=== PATIENT | male | born 1995 | race African-American/Black ===

== ENCOUNTER 2025-06-29 14:42 | Outpatient (OUT) | payer OTHER, SELFPAY ==
--- OUTSIDE RECORDS SUMMARY | 2025-06-29 10:00 | XMS_ITS ---
Author Organization [facility] in [place] Address [address] [place] [address] Care Team Providers Care Law Office Receptionist Name Role Phone Jorge L Lemos Primary Care Provider Allergies No Known Allergies REASON FOR VISIT New Patient- Establish Social History Tobacco Use: Social History Observation Description Date Details (start date - stop date) Never Smoker NA - NA Tobacco Control (Standard) Question Answer Notes Tobacco use: Nonsmoker AUDIT-C (Standard) Question Answer Notes Did you have a drink contain ing alcohol in the past year? Yes How often did you have a dri nk containing alcohol in the past year? Never (0 point) How many drinks did you have on a typical day when you were drinking in the past year? 1 or 2 drinks (0 point) How often did you have six o r more drinks on one occasion in the past year? 2 to 4 times a month (2 points) Points 2 Interpretation Negative Problems Problem Type SNOMED Code ICD Code Onset Dates Problem Status W/U Status Risk Notes Problem Well adult (173196939) Well adult (Z00.00) Active confirmed Vital Signs Weight 190.2 lbs 06/29/2025 Height 6ft in 06/29/2025 Blood pressure systolic 132 mm Hg 06/29/20 25 Blood pressure diastolic 82 mm Hg 025 BMI 25.79 kg/m2 06/29/2025 Encounters Encounter Location Date Provider Diagnosis [facility] [address] [place] [address] 06/29/2025 Jorge L Lemos Well adult Z00.0 0 Assessments Encounter Date Diagnosis (ICD Code) Assessment Notes Treatment Notes Treatment Clinical Notes Section Notes 06/29/2025 Well adult (ICD-10 - Z00.00) Plan Of Treatment Pending Test Test Name Order Date HEMOGLOBIN A1C (GLYCO) 06/29/2025 LIPID PANEL (CHOL/TRIG/HDL/LDL) 06/29/20 25 HERPES SIMPLEX 1,2 IGM AB (IFA) 06/29/20 25 CHLAMYDIA AND GC (URINE, VAG, OR SWAB) - IH 06/29/2025 HEPATITIS PANEL, ACUTE 06/29/2025 HIV 1 AND 2 WITH REFLEX 06/29/2025 RPR QUANT 06/29/2025 CMP (COMP MET ROD) w/eGFR CKD-EPI 2024 CBC WITH DIFF 06/29/2025 Progress Notes * Xavi MARTINMadelinOB: (30 yo M)Acc No.[id number]:06/29/2025 UNLOCKED PROGRESS NOTE New Patient Patient: Renetta PATEL Provider: Gurinder Lemos ([facility])MD :1995 A ge:30 Y S ex:Male Date:06/29/2025 Address:[address], [place], [id number] Check In:01:55 PM ESTCheck O ut:02:31 PM EST Subjective: * Chief Complaints: * 1 . New Patient- Establish. * HPI: G eneral: Doignwell -0 no issues - disussed nee for labs discussed htn - borderline - watch caffien. D epression Screening: PHQ-2 (2015 Edition) L ittle interest or pleasure in doing things??Not at all F eeling down, depressed, or hopeless? N ot at all T otal Score 0 * ROS: E ENT: hearing changes d enies. v isual changes d enies.?non-healing mouth sores d enies. s wollen glands or neck lumps d enies. h oarseness d enies. s ore throat d enies. d ifficulty swallowing d enies. n ose bleeds d enies. n chris congestion d enies. e ar ache d enies. e ar discharge?denies. r inging in ears d enies. l ight sensitivity d enies. e ye pain d enies. b lurring d enies. e ye irritation d enies. d ouble vision d enies.?vision loss d enies. G eneral/Constitutional: Sweats: D enies. F atigue d enies. S leep problems d enies. A norexia d enies. M alaise d enies. W eight loss d enies.?Fatigue or Weakness d enies. F ever or Chills d enies. C ardiovascular: Shortness of Breath w/lying flat d enies. L ightheadedness/dizziness d enies. C hest tightness/ heavy pressure d enies. S welling of legs, ankles, or feet d enies. W aking up with shortness of breath d enies. C hest pain denies. P alpitations d enies. W eight gain d enies. R espiratory: Chronic or frequent cough d enies. C oughing up blood?denies. D ifficulty breathing d enies. P roductive cough d enies. S noring?denies. S hortness of breath that awakens from sleep (PND) d enies. C hest pain d enies. S putum production d enies. W heezing d enies. M usculoskeletal: Joint pain d enies. J oint Fluid d enies. B ack pain d enies. K nee pain d enies. N myesha pain d enies. J oint Stiffness d enies. M uscle cramps d enies. W eakness of muscles d enies. A rthritis d enies. M uscle aches d enies. P ain in shoulder(s) d enies. S wollen joints d enies. * Medical History: M edical History Verified. * Surgical History: D enies Past Surgical History. * Hospitalization/Major Diagno stic Procedure: D enies Past Hospitalization. * Family History: F ather: , diagnosed with Unspecified heart disease. M other: alive. B rother(s): . S ister(s): alive. * Social History: T obacco Use: T obacco Control (Standard) T obacco use: N onsmoker D rug/Alcohol: A OLGA-C (Standard) D id you have a drink containing alcohol in the past year? Y es H ow often did you have a drink containing alcohol in the past year? N ever (0 point) H ow many drinks did you have on a typical day when you were drinking in the past year? 1 or 2 drinks (0 point) H ow often did you have six or more drinks on one occasion in the past year? 2 to 4 times a month (2 points) P oints 2 I nterpretation N egative * Medications: N one * Allergies: N .K.D.A. Objective: * Vitals: W t:190.2lbs, Ht: 6ft, BP:132/82mm Hg, BMI:25.79Index, Ht-cm: 182.88 cm, Wt-k.27 kg. * Examination: P hysical Exam: GENERAL: w ell developed, well nourished, in no acute distress. HEAD: n ormocephalic/atraumatic. EYES: p upils equal, round and reactive to light, conjunctivae and sclerae normal. EARS: n o deformity or lesion of external ear, canals and TM appear normal bilaterally, TM's intact, not inflamed with normal light reflex, hearing grossly normal to conversational speech. NOSE: n o deformity, discharge, inflammation, or lesions.? MOUTH: m ucous membranes moist, normal oropharynx and posterior pharynx without lesions or exudates, tongue normal, dentition normal. NECK: n myesha supple, no masses or palpable cervical nodes, trachea midline, thyroid without nodules, masses, tenderness, or enlargement. CHEST: n o chest wall deformity, no chest wall tenderness.? LUNGS: n ormal respiratory effort and clear to auscultation, no wheezes, rales, or rhonchi, good air exchange. CARDIO: r egular rate and rhythm, normal S1 and S2, nor murmur, rub, or gallop. PULSES: n ormal capillary refill. ABDOMEN: s oft, non-distended, non-tender, no masses. MUSCULOSKELETAL: n o deformity or scoliosis noted, normal range of motion, joints normal, no erythema, edema, effusion, or ecchymosis. EXTREMITY: n o clubbing, cyanosis, edema, or deformity with normal ROM in both upper and lower bilateral extremities. NEUROLOGIC: g rossly normal. SKIN: n o rashes, ulcerations, or suspicious lesions. LYMPH NODES: n o cervical adenopathy, nodes normal. MENTAL STATUS: a lert and oriented x3, normal mood and affect. Assessment: * Assessment: 1. W ell adult - Z00.00 (Primary) Plan: * Treatment: * Procedure Codes: 8 7491 CHYLMD TRACH, DNA, AMP PROBE * * Electronic signature of Jorge L Lemos MD, [phone] on 06/29/2025 at 02:49 PM EDT Sign off status: Pending Visit Status: Barbara POST (Check Out) * Provider: Gurinder Lemos ([facility])MD Date: 0 06/29/2025 Generated for Printi ng/Faxing/eTransmitting on: 0 06/29/2025 02:49 PM EDT History and Physical Notes * HPI (History of Present Illness) Category Sub-Category Detail Notes Category Not es General Doignwell -0 no issues - disussed nee for labs discussed htn - borderline - watch caffien Depression Screening PHQ-2 (2015 Edition) Little interest or pleasure in doing things?: Not at all Feeling down, depressed, or hopeless?: N ot at all Total Score: 0 Examination Category Sub-Category Detail Notes Category Not es Physical Exam GENERAL: well developed, well nourished, in no acute distress HEAD: normocephalic/atraum atic EYES: pupils equal, round and reactive to light, conjunctivae and sclerae normal EARS: no deformity or lesi on of external ear, canals and TM appear normal bilaterally, TM's intact, not inflamed with normal light reflex, hearing grossly normal to conversational speech NOSE: no deformity, discha rge, inflammation, or lesions MOUTH: mucous membranes eric st, normal oropharynx and posterior pharynx without lesions or exudates, tongue normal, dentition normal NECK: neck supple, no mass es or palpable cervical nodes, trachea midline, thyroid without nodules, masses, tenderness, or enlargement CHEST: no chest wall deform ity, no chest wall tenderness LUNGS: normal respiratory e ffort and clear to auscultation, no wheezes, rales, or rhonchi, good air exchange CARDIO: regular rate and rhy thm, normal S1 and S2, nor murmur, rub, or gallop PULSES: normal capillary ref ill ABDOMEN: soft, non-distended, non-tender, no masses RECTAL: MUSCULOSKELETAL: no deformity or scol iosis noted, normal range of motion, joints normal, no erythema, edema, effusion, or ecchymosis EXTREMITY: no clubbing, cyanosi s, edema, or deformity with normal ROM in both upper and lower bilateral extremities NEUROLOGIC: grossly normal SKIN: no rashes, ulceratio ns, or suspicious lesions LYMPH NODES: no cervical adenopat hy, nodes normal MENTAL STATUS: alert and oriented x 3, normal mood and affect
--- OUTSIDE RECORDS SUMMARY | 2025-06-29 14:49 | XMS_ITS | Clinical Summary ---
Author Organization [facility] Address [address] [place] [address] Care Team Providers Care Child Development Consultant Name Role Phone Noreen Linda MD Primary Care Provider Social History Tobacco Use Types Packs/Day Years Used Date Smoking Tobacco: Never Assessed Sex and Gender Information Value Date Recorded Sex Assigned at Not on file Legal Sex Male 8:28 PM EDT Gender Identity Male 01/29/2023 8:28 PM EDT Sexual Orientation Not on file Last Filed Vital Signs Vital Sign Reading Time Taken Comments Blood Pressure 130/88 03/13/2023 12:00 PM EDT Pulse - - Temperature - - Respiratory Rate - - Oxygen Saturation - - Inhaled Oxygen Concentration - - Weight 82.1 kg (181 lb) 03/13/2023 12:00 PM EDT Height 182.9 cm (6') 03/13/2023 12:00 PM EDT Body Mass Index 24.55 03/13/2023 12:00 PM EDT Plan of Treatment Health Maintenance Due Date Last Done Comments Influenza Vaccine (#1) 2025 Insurance [employer] Care Teams Child Development Consultant Relationship Specialty Start Date End Date Noreen Linda MD [address] [place] [address] PCP - General Family Medicine 03/25/23
--- OUTSIDE RECORDS SUMMARY | 2025-06-29 14:49 | XMS_ITS | Patient Health Record ---
Author Organization [facility] in [place] Address [address] [place] [address] Care Team Providers Care Hand Bander Name Role Phone CaneloJorge L Primary Care Provider [phone] Allergies No Known Allergies Reason For Referral No Information Social History Tobacco Use: Social History Observation [...] W/U Status Risk Notes Problem Well adult (572997746) Well adult (Z00.00) Active confirmed Vital Signs Blood pressure diastolic 82 mm Hg 06/29/2025 Height 6ft in 06/29/2025 Blood pressure systolic 132 mm Hg 06/29/2025 Weight 190.2 lbs 06/29/2025 BMI 25.79 kg/m2 06/29/2025 Encounters Encounter Location Date Provider Diagnosis [facility] ([place], [place]) [address] [place] [address] 06/29/2025 Jorge L Lemos Well adult Z00.0 0 Assessments Encounter Date Diagnosis (ICD Code) Assessment Notes Treatment Notes Treatment Clinical Notes Section Notes 06/29/2025 Well adult (ICD-10 - Z00.00) Plan Of Treatment Pending Test Test Name Order Date HEMOGLOBIN A1C (GLYCO) 06/29/2025 LIPID PANEL (CHOL/TRIG/HDL/LDL) 06/29/20 HERPES SIMPLEX 1,2 IGM AB (IFA) 06/29/20 CHLAMYDIA AND GC (URINE, VAG, OR SWAB) - IH 06/29/2025 HEPATITIS PANEL, ACUTE 06/29/2025 HIV 1 AND 2 WITH REFLEX 06/29/2025 RPR QUANT 06/29/2025 CMP (COMP MET ROD) w/eGFR CKD-EPI 2024 CBC WITH DIFF 06/29/2025 Insurance Providers Payer Name Payer Address Payer Phone Subscriber Number Group Number Insured Name Patient Relationship to Insured Coverage Start Date Coverage End Date [facility] [address] [place], [place] [id number] [phone] [id number] Renetta Whitman Self - patient is the insured
[2025-06-29 15:42] LABS: Hematocrit 45.2 % (42.0-54.0); Hemoglobin 15.7 g/dL (14.0-18.0); Mean Corpuscular HGB Conc 34.7 g/dL (29.9-35.2); Mean Corpuscular Hemoglobin 30.8 pg (25.9-34.0); Mean Corpuscular Volume 88.8 fL (80.0-94.0); Platelet Count 226 10^3/uL (150-450); Red Blood Count 5.09 10^6/uL (4.70-6.10); White Blood Count 2.7 10^3/uL (4.0-11.0)
[2025-06-29 16:00] LABS: Band Neutrophils Absolute 0.0 10^3/uL (0.0-0.3); Basophils Abs Manual 0.00 10^3/uL (0.00-0.10); Basophils Percent Manual 0.0 % (0.2-2.0); Eosinophils Absolute Manual 0.00 10^3/uL (0.00-0.70); Eosinophils Percent Manual 0.0 % (0.9-7.0); Lymphocytes Absolute Manual 1.24 10^3/uL (1.20-3.80); Lymphocytes Percent Manual 46.0 % (20.5-60.0); Monocytes Absolute Manual 0.45 10^3/uL (0.30-0.80); Monocytes Percent Manual 17.0 % (1.7-12.0); Segmented Neut Absolute Manual 0.97 10^3/uL (1.4-6.5); Segmented Neutrophils % Manual 36.0 (43.0-75.0)
[2025-06-29 16:05] LABS: Alanine Aminotransferase 74 U/L (16-63); Albumin Globulin Ratio 1.2; Albumin Level 4.3 g/dL (3.4-5.0); Alkaline Phosphatase 77 U/L (46-116); Anion Gap 13.4; Aspartate Amino Transferase 38 U/L (15-37); Blood Urea Nitrogen 12.0 mg/dL (7.0-18.0); Calcium 9.2 mg/dL (8.5-10.1); Carbon Dioxide 27.7 mmol/L (21.0-32.0); Chloride 102 mmol/L (98-107); Cholesterol 204 mg/dL (<=200); Estimated GFR (African America >60 (>=60 mL/min/1.73m^2); Estimated GFR (Non-African Ame >60 (>=60 mL/min/1.73m^2); Globulin 3.6 g/dL; Glucose 89 mg/dL (74-106); HDL Cholesterol 59 mg/dL (40-60); Potassium 4.1 mmol/L (3.5-5.1); Sodium 139 mmol/L (136-145); Total Protein 7.9 g/dL (6.4-8.2); Triglycerides 112 mg/dL (<=150); VLDL CHOLESTEROL 22.4 mg/dL
[2025-06-30 12:13] LABS: Rapid Plasma Reagin, Quant Non Reactive titer (NonRea<1:1)
[2025-07-01 06:08] LABS: Neisseria gonorrhoeae, NAA Negative (Negative)
[2025-07-04 09:08] LABS: HSV-1 DNA Negative (Negative); HSV-2 DNA Negative (Negative)
== END 2025-06-29 14:43 | disposition home or self-care (01) ==
LOC: LAB 14:47
PROVIDERS: PCP Family Medicine; Visit Provider Family Medicine
DX: Z00.00 Encounter for general adult medical examination without abnormal findings (principal); R73.09 Other abnormal glucose; Z20.2 Contact with and (suspected) exposure to infections with a predominantly sexual mode of transmission
CPT/HCPCS: 36415; 80053; 80061; 80074; 83036; 85007; 85027; 86592; 87389; 87491; 87529; 87591